=== PATIENT | female | born 2000 | race Caucasian/White ===

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

== ENCOUNTER 2023-09-29 00:31 | Inpatient (IN) ==
[2023-09-29] MEDS ORDERED: PENICILLIN GK 6 MU in DEXTROSE 5% 250 ML IV STA (01:14)
[2023-09-29] MEDS ORDERED: OXYTOCIN 30 UNITS/NSS 30 UNITS/500 ML BAG IV PRN ×3 (01:14→14:14)
[2023-09-29] MEDS ORDERED: LIDOCAINE 1% LOCAL 20 ML VIAL INFIL PRN (01:14)
[2023-09-29] MEDS: LACTATED RINGER'S 1,000 ML IV PRN ×2 (01:24→04:44)
[2023-09-29 02:01] LABS: Hematocrit (blood only) 32.7 % (37.0-47.0); Hemoglobin 10.9 g/dl (12.0-16.0); Mean Corpuscular Hemoglobin 28.2 pg (25.0-34.0); Mean Corpuscular Hgb Conc 33.3 g/dL (32.0-36.0); Mean Corpuscular Volume 84.5 fL (80.0-100.0); Mean Platelet Volume 10.4 fL (9.4-12.4); Platelet Count 227 K/uL (130-400); RDW Coefficient of Variation 12.9 % (11.5-14.5); RDW Standard Deviation 38.7 fL (36.4-46.3); Red Blood Count 3.87 M/uL (4.20-5.40); White Blood Count 10.37 K/ul (4.8-10.8)
[2023-09-29] MEDS ORDERED: fentaNYL citrate PF 100 MCG/2 ML VIAL ONE (03:52)
[2023-09-29] MEDS ORDERED: LIDOCAINE 2%/EPINEPHRINE 1:200,000 20 ML PF ONE (03:53)
[2023-09-29] MEDS ORDERED: BUPIVACAINE 0.25% PF 30 ML VIAL ONE (03:53)
[2023-09-29] MEDS ORDERED: fentANYL 2 MCG/ML BUPIVacaine 0.125%-NSS 100ML BAG ONE (03:53)
[2023-09-29] MEDS ORDERED: SODIUM CHLORIDE 0.9% PF INJ 10 ML VIAL ONE (03:53)
[2023-09-29] MEDS ORDERED: ePHEDrine sulfate 50 MG/ML AMP ONE (03:53)
[2023-09-29] MEDS ORDERED: NALOXONE HCL 1 MG in SODIUM CHLORIDE 0.9% 1,000 ML IV PRN (04:19)
[2023-09-29] MEDS ORDERED: BUPIVACAINE 0.25% PF 30 ML VIAL EPI PRN (04:19)
[2023-09-29] MEDS ORDERED: fentaNYL citrate PF 100 MCG/2 ML VIAL EPI STA (04:19)
[2023-09-29] MEDS ORDERED: LIDOCAINE 2%/EPINEPHRINE 1:200,000 20 ML PF EPI STA (04:19)
[2023-09-29] MEDS ORDERED: fentANYL 2 MCG/ML BUPIVacaine 0.125%-NSS 100ML BAG EPI PRN (04:19)
[2023-09-29] MEDS ORDERED: SODIUM CHLORIDE 0.9% PF INJ 10 ML VIAL EPI PRN (04:19)
[2023-09-29] MEDS ORDERED: SODIUM CHLORIDE 0.9% PF INJ 10 ML VIAL EPI STA (04:19)
[2023-09-29] MEDS ORDERED: ePHEDrine sulfate 50 MG/ML AMP IV PRN (04:19)
[2023-09-29] MEDS ORDERED: LIDOCAINE 2% MPF LOCAL 5 ML VIAL EPI PRN (04:19)
[2023-09-29] MEDS ORDERED: diphenhydrAMINE 50 MG/ML VIAL IV PRN (04:19)
[2023-09-29] MEDS ORDERED: NALBUPHINE HCL 5 MG in SYRINGE 0 ML IV PRN (04:19)
[2023-09-29] MEDS ORDERED: NALOXONE HCL 0.4 MG/1 ML VIAL/CARP IV PRN (04:19)
[2023-09-29] MEDS ORDERED: BUPIVACAINE 0.25% PF 30 ML VIAL EPI STA (04:19)
[2023-09-29] MEDS ORDERED: ROPIVACAINE 0.5% PF 5 MG/ML 20 ML VIAL EPI PRN (04:19)
[2023-09-29] MEDS ORDERED: fentaNYL citrate PF 100 MCG/2 ML VIAL EPI PRN (04:19)
--- NOTE | 2023-09-29 04:19 | Anesthesiology Consultation ---
Date of Service September 29, 2023 Assessment & Plan (1) Encounter for pre-operative examination: Chart Review Chart Review: Patient NOT seen in Pre Admission Testing and Acceptable Risk for Labor Epidural Consults Requested none History Height/Weight Height: 5 ft 9 in Weight: 87.997 kg Allergies Allergy/AdvReac Type Severity Reaction Status Date / Time No Known Allergies Allergy Verified 09/22/23 09:43 Medications Home Medications Medication Instructions Recorded Confirmed Last Taken prenat.vits,gerard,[id number] 1 tab PO DAILY 02/25/23 09/29/23 09/29/23 breast pump #1 ea 08/06/23 09/22/23 Unknown Active Medications Generic Name Dose Route Start Last Admin Trade Name Freq PRN Reason Stop Dose Admin Lactated Ringer's 1,000 mls @ 125 mls/hr 09/29/23 01:14 09/29/23 03:59 Lr IV 10/01/23 01:13 999 mls/hr .Q8H PRN Infusion L&D Protocol Protocol Past Family History Family History Grandfather (Maternal) Myocardial infarction Family/Other Breast cancer cousin Mother Depression Sister Depression Asthma Grandfather Colorectal cancer Denies family history of Ovarian cancer Prostate cancer Past Surgical History Surgical History H/O eye surgery S/P hernia repair inguinal H/O wrist surgery Social History Smoking Status: Current every day smoker Do You Dip or Chew Tobacco: No Hx Alcohol Use: No Hx Substance Use: No substance use type: does not use Physical Exam Vital Signs Last Vital Signs Temp 98.2 F 09/29/23 03:25 Pulse 78 09/29/23 04:16 Resp 18 09/29/23 03:25 BP 130/65 09/29/23 03:26 Pulse Ox 98 09/29/23 04:16 Testing Laboratory Results 09/29/23 01:47
[2023-09-29] MEDS: PENICILLIN GK 3 MU in DEXTROSE 5% 100 ML IV PRN ×2 (05:27→11:05)
--- NOTE | 2023-09-29 07:42 | History & Physical Report ---
Date of Service September 29, 2023 Assessment & Plan (1) GBS carrier: (2) Encounter for supervision of normal , antepartum: Plan Will admit patient to labor and delivery for management of labor VSS FHT category 1 rh positive GBS positive - treat with intrapartum penicillin Pit as needed Epidural prn All questions answered Admission and Anticipated Discharge Date Admission Date: September 29, 2023 History of Present Illness Chief Complaint: ROM Primary Care Provider: Raman GuyDO Eloise meek is a 23 y/o female currently at IUP 38 3/7 WGA with an ALEKS 10/10/23 as determined by certain LMP who is here for management of labor after she notic ed a gush of fluid earlier this morning. (+) contractions (+) movement (+) fluid loss (-) bloody show External FHT and external uterine monitors used * Category 1 tracing * Moderate FHT variability. Had regular appointments since 1st trimester. OB Labs: Blood Type AB Positive 03/04/23 Antibody Screen NEGATIVE 03/04/23 Hemoglobin 11.0 g/dl (12.0-16.0) L 08/04/23 Hematocrit 32.3 % (37.0-47.0) L 08/04/23 Mean Corpuscular Volume 86.1 fL (80.0-100.0) 08/04/23 Platelet Count 236 K/uL (130-400) 08/04/23 Rubella IgG Antibody Immune (Immune) 03/04/23 Rapid Plasma Reagin Nonreactive (Nonreactive) 03/04/23 Hepatitis B Surface Antigen. NON-REACTIVE (NON-REACTIVE) 03/04/23 Hepatitis C Antibody (EIA) NON-REACTIVE (NON-REACTIVE) 03/04/23 HIV (1&2) Ag and Ab Confirmation NON-REACTIVE (NON-REACTIVE) 03/04/23 Glucose 1 Hour 50 gm Load 129 mg/dl (70-130) 07/22/23 Maternal Serum Alpha Fetoprotein 39.6 ng/mL 05/01/23 OB Optional Labs: Chlamydia trachomatis RNA Not Detected (NotDetected) 05/01/23 Neisseria gonorrhoeae RNA Not Detected (NotDetected) 05/01/23 Thyroid Stimulating Hormone (TSH) 1.810 uIu/ml (0.300-4.500) 08/25/20 Alpha Fetoprotein Triple Screen SEE NOTE 05/01/23 Allergies Allergy/AdvReac Type Severity Reaction Status Date / Time No Known Allergies Allergy Verified 09/22/23 09:43 Home Medications Medication Instructions Recorded Confirmed Type prenat.vits,gerard,spv-wybt-ejadq 1 tab PO DAILY 02/25/23 09/29/23 History breast pump #1 ea 08/06/23 09/22/23 Rx Patient History Surgical History H/O eye surgery S/P hernia repair inguinal H/O wrist surgery Family History Grandfather (Maternal) Myocardial infarction Family/Other Breast cancer cousin Mother Depression Sister Depression Asthma Grandfather Colorectal cancer Denies family history of Ovarian cancer Prostate cancer Social History (Updated 09/29/23 @ 00:50 by Senia Ardon RN) Smoking Status: Current every day smoker Tobacco Type: E-cigarettes / Vaping Second Hand Exposure: Yes (smoke and vape exposure); Do You Dip or Chew Tobacco: No; Hx Alcohol Use: No Hx Substance Use: No Preferred Language: Latvian Records Associate Required: No Beliefs That Will Affect Care: None marital status: Single marital status details: Brando (23) [phone] Current Living Situation: Significant Other current occupational status: employed 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 Details: Last pap 04/30/22 with [facility] Ac Review of Systems no fever, no chills and no sweats Denies changes in vision. Denies shortness of breath or respiratory difficulty. no chest pain and no palpitations no dysuria no headache(s) Physical Exam Physical Exam: General: Alert, oriented x3. Afebrile. No acute distress. Eyes: Pupils equal and reactive to light bilaterally. Extraocular movement intac t bilaterally. Cardiac: Regular rate and rhythm, no murmurs/rubs/gallops. Respiratory: Clear to auscultation bilaterally a/p, no wheezes/rales/rhonchi. No increased work of breathing. Symmetrical chest rise. No respiratory distress. Abdomen: Gravid; FHR baseline 125-130 bpm, Position: Vertex Pelvic: 3 / 50 / -[address] Guillory Lower Extremities: No lower extremity edema or swelling. No deep calf pain. Renetta's negative bilaterally Results & Data Vital Signs (Past 12 Hours) Vital Signs Temp Pulse Resp BP Pulse Ox 09/29/23 07:27 75 107/55 L 09/29/23 07:26 70 93 09/29/23 07:22 68 94 09/29/23 07:21 71 95 09/29/23 07:16 76 96 09/29/23 07:15 70 94 09/29/23 07:12 70 106/60 09/29/23 07:11 71 91 09/29/23 07:06 73 94 09/29/23 07:01 96 09/29/23 07:01 72 09/29/23 07:01 73 94 09/29/23 06:59 36.4 C L 84 16 101/57 L 97 09/29/23 06:56 97 09/29/23 06:56 84 09/29/23 06:56 36.4 C L 83 16 101/57 L 97 09/29/23 06:51 77 97 09/29/23 06:46 70 95 09/29/23 06:41 97 09/29/23 06:41 76 09/29/23 06:41 63 101/58 L 09/29/23 06:36 77 96 09/29/23 06:31 70 96 09/29/23 06:26 96 09/29/23 06:26 78 09/29/23 06:26 67 104/55 L 09/29/23 06:23 73 93 09/29/23 06:21 81 98 09/29/23 06:16 85 97 09/29/23 06:13 74 107/58 L 09/29/23 06:11 74 97 09/29/23 06:06 87 97 09/29/23 06:01 69 98 09/29/23 05:56 97 09/29/23 05:56 74 09/29/23 05:56 74 99/54 L 09/29/23 05:51 69 97 09/29/23 05:46 73 96 09/29/23 05:41 77 108/58 L 96 09/29/23 05:36 74 96 09/29/23 05:31 69 96 09/29/23 05:30 16 09/29/23 05:30 36.5 C 16 09/29/23 05:27 73 106/57 L 09/29/23 05:26 70 96 09/29/23 05:21 72 96 09/29/23 05:16 70 96 09/29/23 05:11 96 09/29/23 05:11 70 09/29/23 05:11 73 101/55 L 09/29/23 05:06 73 97 09/29/23 05:01 76 97 09/29/23 04:56 76 96 09/29/23 04:55 74 16 106/52 L 09/29/23 04:51 73 96 09/29/23 04:50 16 09/29/23 04:50 16 09/29/23 04:49 75 105/55 L 09/29/23 04:47 79 105/55 L 09/29/23 04:46 77 97 09/29/23 04:45 71 18 108/53 L 09/29/23 04:42 80 117/59 L 09/29/23 04:41 88 98 09/29/23 04:40 80 118/73 09/29/23 04:39 76 16 119/72 09/29/23 04:36 83 100 09/29/23 04:31 85 100 09/29/23 04:26 82 98 09/29/23 04:21 84 98 09/29/23 04:16 78 98 09/29/23 04:11 81 98 09/29/23 04:06 78 99 09/29/23 03:26 76 130/65 09/29/23 03:25 18 09/29/23 03:25 36.8 C 18 09/29/23 02:17 18 09/29/23 02:17 36.7 C 18 09/29/23 00:51 36.7 C 18 09/29/23 00:45 88 131/85 Supervising Physician Co-Signing Physician Notes Resident Physician Supervision Note: I was present with Dr. Centeno during the history and exam. I discussed the case with the resident and agree with the findings and plan as documented in the note. Any exceptions or clarifications are listed here: [None] Documented By: Shaniqua Guillory MD, FACOG
[2023-09-29 09:52] LABS: Alanine Aminotransferase 9 U/L (7-52); Albumin Globulin Ratio 1.1 (0.9-2); Alkaline Phosphatase 125 U/L (34-104); Anion Gap 6 (3-11); Aspartate Aminotransferase 13 U/L (13-39); BUN Creatinine Ratio 11.5 (10-20); Bilirubin,Total 0.3 mg/dl (0.2-1.0); Blood Urea Nitrogen 6 mg/dl (6-23); Calcium 8.3 mg/dl (8.6-10.3); Carbon Dioxide 24 mmol/L (21-32); Chloride 108 mmol/L (98-107); Creatinine Clr Calc Pharmacy 200.7 ml/min; Est GFR (African American) > 150.0 ml/min; Est GFR (Non-African American) 135.6 ml/min; Globulin 2.7 gm/dl (2.5-4.0); Glucose 84 mg/dl (70-99(Fasting)); Potassium 3.6 mmol/L (3.5-5.1); Sodium 138 mmol/L (136-145); Total Protein 5.7 gm/dl (6.0-8.3)
--- NOTE | 2023-09-29 11:00 | Labor Progress Brief Note ---
Date of Service September 29, 2023 Subjective comfortable with epidural. Assessment & Plan (1) PROM (premature rupture of membranes): (2) GBS carrier: Plan good cx change. c/w pitocin to keep labor pattern regular. fhts categ 1. Admission and Anticipated Discharge Date Admission Date: September 29, 2023 Physical Exam Constitutional: WD/WN, vitals as above Genitourinary: Manual OB Exam: + cervical dilation 7 cm, + cervical effacement 80%, + station -1 and + amniotic fluid (forebag arom) clear OB Exam Monitor Tracing: + external FHT monitor used, + external uterine monitor used (q2-3), + category I and + normal FHT variability Results & Data Vital Signs (Past 12 Hours) Vital Signs Temp Pulse Resp BP Pulse Ox 09/29/23 10:57 79 91 09/29/23 10:56 80 97 09/29/23 10:51 81 96 09/29/23 10:46 74 96 09/29/23 10:41 96 09/29/23 10:41 79 09/29/23 10:41 82 105/57 L 91 09/29/23 10:36 76 95 09/29/23 10:31 78 97 09/29/23 10:26 80 111/58 L 96 09/29/23 10:21 84 97 09/29/23 10:16 84 97 09/29/23 10:11 59 L 135/71 96 09/29/23 10:06 61 96 09/29/23 10:01 61 97 09/29/23 09:57 57 L 131/71 09/29/23 09:56 61 97 09/29/23 09:51 63 97 09/29/23 09:46 63 97 09/29/23 09:41 98 09/29/23 09:41 64 09/29/23 09:41 61 136/72 09/29/23 09:36 64 97 09/29/23 09:31 66 98 09/29/23 09:27 63 131/76 09/29/23 09:26 66 98 09/29/23 09:21 68 98 09/29/23 09:16 67 98 09/29/23 09:11 98 09/29/23 09:11 74 09/29/23 09:11 67 144/63 H 09/29/23 09:06 73 97 09/29/23 09:01 70 97 09/29/23 08:56 98 09/29/23 08:56 64 09/29/23 08:56 68 147/64 H 09/29/23 08:51 72 98 09/29/23 08:46 68 96 09/29/23 08:41 97 09/29/23 08:41 74 09/29/23 08:41 75 138/57 L 09/29/23 08:36 77 97 09/29/23 08:31 69 97 09/29/23 08:26 97 09/29/23 08:26 87 09/29/23 08:26 67 144/81 H 09/29/23 08:21 79 98 09/29/23 08:16 73 97 09/29/23 08:11 96 09/29/23 08:11 76 09/29/23 08:11 85 148/96 H 09/29/23 08:06 75 95 09/29/23 08:01 76 96 09/29/23 07:56 77 141/89 H 92 09/29/23 07:51 79 96 09/29/23 07:46 78 96 09/29/23 07:42 70 138/75 94 09/29/23 07:41 74 96 09/29/23 07:36 69 97 09/29/23 07:31 79 98 09/29/23 07:27 75 107/55 L 09/29/23 07:26 70 93 09/29/23 07:22 68 94 09/29/23 07:21 71 95 09/29/23 07:16 76 96 09/29/23 07:15 70 94 09/29/23 07:12 70 106/60 09/29/23 07:11 71 91 09/29/23 07:06 73 94 09/29/23 07:01 96 09/29/23 07:01 72 09/29/23 07:01 73 94 09/29/23 06:59 97.5 F L 84 16 101/57 L 97 09/29/23 06:56 97 09/29/23 06:56 84 09/29/23 06:56 97.5 F L 83 16 101/57 L 97 09/29/23 06:51 77 97 09/29/23 06:46 70 95 09/29/23 06:41 97 09/29/23 06:41 76 09/29/23 06:41 63 101/58 L 09/29/23 06:36 77 96 09/29/23 06:31 70 96 09/29/23 06:26 96 09/29/23 06:26 78 09/29/23 06:26 67 104/55 L 09/29/23 06:23 73 93 09/29/23 06:21 81 98 09/29/23 06:16 85 97 09/29/23 06:13 74 107/58 L 09/29/23 06:11 74 97 09/29/23 06:06 87 97 09/29/23 06:01 69 98 09/29/23 05:56 97 09/29/23 05:56 74 09/29/23 05:56 74 99/54 L 09/29/23 05:51 69 97 09/29/23 05:46 73 96 09/29/23 05:41 77 108/58 L 96 09/29/23 05:36 74 96 09/29/23 05:31 69 96 09/29/23 05:30 16 09/29/23 05:30 97.7 F 16 09/29/23 05:27 73 106/57 L 09/29/23 05:26 70 96 09/29/23 05:21 72 96 09/29/23 05:16 70 96 09/29/23 05:11 96 09/29/23 05:11 70 09/29/23 05:11 73 101/55 L 09/29/23 05:06 73 97 09/29/23 05:01 76 97 09/29/23 04:56 76 96 09/29/23 04:55 74 16 106/52 L 09/29/23 04:51 73 96 09/29/23 04:50 16 09/29/23 04:50 16 09/29/23 04:49 75 105/55 L 09/29/23 04:47 79 105/55 L 09/29/23 04:46 77 97 09/29/23 04:45 71 18 108/53 L 09/29/23 04:42 80 117/59 L 09/29/23 04:41 88 98 09/29/23 04:40 80 118/73 09/29/23 04:39 76 16 119/72 09/29/23 04:36 83 100 09/29/23 04:31 85 100 09/29/23 04:26 82 98 09/29/23 04:21 84 98 09/29/23 04:16 78 98 09/29/23 04:11 81 98 09/29/23 04:06 78 99 09/29/23 03:26 76 130/65 09/29/23 03:25 18 09/29/23 03:25 98.2 F 18 09/29/23 02:17 18 09/29/23 02:17 98.1 F 18 09/29/23 00:51 98.1 F 18 09/29/23 00:45 88 131/85 Coding Level of Care Code None Diagnoses PROM (premature rupture of membranes) O42.90 GBS carrier Z22.330
--- NOTE | 2023-09-29 12:53 | Delivery Summary ---
Vaginal Delivery Summary Date of Service September 29, 2023 Vaginal Delivery Summary and 1st Degree LAC Patient progressed to 10 cm dilated 100% effaced +2-3 station and pushed over intact perineum with epidural anesthesia and delivered a viable male with weight and Apgars pending. Head of the delivered in SUNDAY position and transition to left transverse. Body and shoulders quickly followed. Patient pushed for approximately 6 to 8 minutes to achieve delivery. was noted to be vigorous soon after delivery and a 1 minute delayed cord clamping was initiated. Cord was then double clamped and cut and cord blood obtained. Attention was turned to delivery of the placenta was delivered intact with three-vessel cord gentle cord traction. On inspection of perineum, vagina and cervix there is noted to be a first-degree perineal laceration which was repaired with 3-0 Vicryl continuous running stitch. All sponge and instrument counts are correct at the completion of the case. Both mother and stable in the immediate postdelivery period. Estimated blood loss of 200 mL and no complications noted [facility] Vaginal Delivery Charge Delivery Type Details: and 1st Degree LAC
--- NOTE | 2023-09-29 13:56 | Anesthesia Procedure Note ---
Date of Service September 29, 2023 Anesthesia Post Epidural Note Vital Signs Vital Signs: Temp Pulse Resp BP Pulse Ox 36.6 C 71 18 122/80 97 09/29/23 10:56 09/29/23 13:40 09/29/23 12:00 09/29/23 13:40 09/29/23 12:46 Pain Intensity Lower Abdomen: Pain Intensity: 0 Notes Mental Status: alert / awake / arousable and participated in evaluation Nausea / Vomiting: adequately controlled Pain: adequately controlled Airway Patency, RR, SpO2: stable & adequate BP & HR: stable & adequate Hydration State: stable & adequate Neuraxial Anesthesia: was administered and sensory block resolved Anesthetic Complications: no major complications apparent and Pt Satisfied with anesthetic care Epidural: Removed without complications and With tip intact
[2023-09-29] MEDS ORDERED: BENZOCAINE 20% SPRY 85 APPLN/85 GM CAN EXT PRN (14:14)
[2023-09-29] MEDS ORDERED: HYDROCORTISONE ACETATE 25 MG SUPP PR PRN (14:14)
[2023-09-29] MEDS ORDERED: ACETAMINOPHEN 325 MG TAB PO PRN (14:14)
[2023-09-29] MEDS ORDERED: bisacodyL 10 MG SUPP PR PRN (14:14)
[2023-09-29] MEDS ORDERED: DIPHTHER/TETAN/PERTUS Vaccine (Tdap, Adol/Adult) 0.5mL IM ONE (14:14)
[2023-09-29] MEDS: IBUPROFEN 600 MG TAB PO PRN (19:56)
[2023-09-29] MEDS: DOCUSATE SODIUM 100 MG CAP PO SCH (21:53)
[2023-09-30] MEDS: IBUPROFEN 600 MG TAB PO PRN ×3 (03:02→19:26)
--- NOTE | 2023-09-30 07:23 | Obstetrical Progress Note ---
Date of Service <Bonny Centeno MD - Last Filed: 09/30/23 07:43> September 30, 2023 Assessment & Plan <Bonny Centeno MD - Last Filed: 09/30/23 07:43> (1) Encounter for care after hospital delivery: Patient with the above mentioned history and findings was evaluated at bedside and found awake, alert, oriented in all spheres, afebrile, and in no acute distress. Vital signs showed no fever and blood pressures remained stable. Her blood type is AB positive and most recent hemoglobin is adequate at 10.9 g/dL. She is GBS positive treated intrapartum and rubella immune. Overall, patient is doing well clinically and meeting the desired milestones. Will continue routine pp care. All questions answered. <Guillermina Jo MD, FACOG - Last Filed: 09/30/23 07:47> (1) Encounter for care after hospital delivery: Subjective <Bonny Centeno MD - Last Filed: 09/30/23 07:43> Eloise is a 23y/o female who is now PPD # 1 following at 38 3/7 weeks. Reports feeling well overall this morning. Refers mild abdominal cramping & 3/10 pain well managed on analgesics. Voiding spontaneously. Has passed flatus but no bowel movements yet. Tolerating meals overnight and able to ambulate some. Some persistent lochia with some improvement this morning. Tried but did not like it. Will change to bottle feeding. Constitutional: no fever, no chills or no sweats Denies shortness of breath or difficulty breathing Cardiovascular: no chest pain or no palpitations Breast: no breast pain Genitourinary (female): no dysuria Neurologic: no headache(s) Denies changes in vision Physical Exam <Bonny Centeno MD - Last Filed: 09/30/23 07:43> General: Alert. Oriented to person, time, and place. Afebrile. No acute distress. Eyes: pupils equal and reactive to light bilaterally, extraocular movements intact. Cardiac: Regular rate and rhythm, no murmurs/rubs/gallops. Respiratory: Clear to auscultation bilaterally a/p, no wheezes/rales/rhonchi. No increased work of breathing. Symmetrical chest rise. No respiratory distress. Abdomen: Soft, nontender, nondistended. Bowel sounds present. Uterus: Uterine fundus firm, nontender, and palpable below umbilicus. Lower Extremities: No lower extremity edema or swelling. No deep calf pain. Renetta's negative bilaterally. Psych: Euthymic affect. Mood and affect congruence. Regular speech rate and content. Results & Data <Bonny Centeno MD - Last Filed: 09/30/23 07:43> Vital Signs (Past 12 Hours) Vital Signs Temp Pulse Resp BP Pulse Ox O2 Del Method 09/30/23 03:06 36.7 C 86 18 109/67 97 Room Air 09/30/23 00:45 36.6 C 83 18 114/72 98 Room Air 09/29/23 20:00 36.4 C L 80 18 112/72 98 Room Air Supervising Physician <Guillermina Jo MD, FACOG - Last Filed: 09/30/23 07:47> Co-Signing Physician Notes Resident Physician Supervision Note: I was present with Dr. Centeno during the history and exam. I discussed the case with the resident and agree with the findings and plan as documented in the note. Any exceptions or clarifications are listed here: doing well, eating, voiding ambulating, now bottle feeding. abd soft ff 2 down nt, nt calves. ppd#1 s/p , doing well. routine care. bottle, rhpos. Documented By: Guillermina Jo MD, FACOG
[2023-09-30] MEDS: DOCUSATE SODIUM 100 MG CAP PO SCH ×2 (07:56→21:07)
[2023-09-30] MEDS: PRENATAL VITAMIN 1 TAB PO SCH (07:56)
[2023-09-30] MEDS ORDERED: NON-FORMULARY MEDICATION (Prenat.Vits,Cal,Min-Iron-Folic tablet) PO SCH (09:00)
[2023-09-30] MEDS ORDERED: bisacodyL 5 MG TABEC PO SCH (20:00)
[2023-10-01] MEDS: IBUPROFEN 600 MG TAB PO PRN ×2 (02:12→09:30)
[2023-10-01 06:16] LABS: Hematocrit (blood only) 31.2 % (37.0-47.0); Hemoglobin 10.6 g/dl (12.0-16.0)
--- NOTE | 2023-10-01 06:54 | Obstetrical Progress Note ---
Date of Service <Bonny Centeno MD - Last Filed: 10/01/23 07:40> October 01, 2023 Assessment & Plan <Bonny Centeno MD - Last Filed: 10/01/23 07:40> (1) Encounter for care after hospital delivery: Patient with the above mentioned history and findings was evaluated at bedside and found awake, alert, oriented in all spheres, afebrile, and in no acute distress. Vital signs showed no fever and blood pressures remained stable. Her blood type is AB positive and most recent hemoglobin is adequate at 10.6 g/dL. She is GBS positive treated intrapartum and rubella immune. Overall, patient is doing well clinically and meeting the desired milestones. Therefore, will discharge today. She was advised to call to make an appointment with her OB in 6 weeks for her routine pp evaluation. Discharge instructions discussed. All questions answered. <Yvrose Knight MD, FACOG - Last Filed: 10/01/23 08:03> (1) Encounter for care after hospital delivery: Subjective <Bonny Centeno MD - Last Filed: 10/01/23 07:40> Eloise is a 23y/o female who is now PPD # 2 following at 38 3/7 weeks. Reports feeling well overall this morning. Refers mild abdominal cramping & 3/10 pain well managed on analgesics. Voiding spontaneously. Has passed flatus but no bowel movements yet. Tolerating meals overnight and able to ambulate without resulting lightheadedness or dizziness. Some persistent lochia with some improvement this morning. Currently bottle feeding. Constitutional: no fever, no chills or no sweats Denies shortness of breath or difficulty breathing Cardiovascular: no chest pain or no palpitations Breast: no breast pain Genitourinary (female): no dysuria Neurologic: no headache(s) Denies changes in vision Physical Exam <Bonny Centeno MD - Last Filed: 10/01/23 07:40> General: Alert. Oriented to person, time, and place. Afebrile. No acute distress. Eyes: pupils equal and reactive to light bilaterally, extraocular movements intact. Cardiac: Regular rate and rhythm, no murmurs/rubs/gallops. Respiratory: Clear to auscultation bilaterally a/p, no wheezes/rales/rhonchi. No increased work of breathing. Symmetrical chest rise. No respiratory distress. Abdomen: Soft, nontender, nondistended. Bowel sounds present. Uterus: Uterine fundus firm, nontender, and palpable below umbilicus. Lower Extremities: No lower extremity edema or swelling. No deep calf pain. Renetta's negative bilaterally. Psych: Euthymic affect. Mood and affect congruence. Regular speech rate and content. Results & Data <Bonny Centeno MD - Last Filed: 10/01/23 07:40> Vital Signs (Past 12 Hours) Vital Signs Temp Pulse Resp BP Pulse Ox O2 Del Method 09/30/23 23:36 36.5 C 76 18 115/73 09/30/23 19:25 36.8 C 75 18 119/77 98 Room Air Supervising Physician <Yvrose Knight MD, FACOG - Last Filed: 10/01/23 08:03> Co-Signing Physician Notes Resident Physician Supervision Note: I interviewed and examined the patient. Discussed with Dr. Centeno and agree with findings and plan as documented in the note. Any exceptions or clarifications are listed here: [None] Documented By: Yvrose Knight MD, FACOG
[2023-10-01] MEDS: PRENATAL VITAMIN 1 TAB PO SCH (09:30)
[2023-10-01] MEDS: DOCUSATE SODIUM 100 MG CAP PO SCH (09:30)
== END 2023-10-01 11:00 | disposition home or self-care (01) | DRG 807 ==
LOC: OPB 00:31 → 4S1 00:34 → 4E2 15:15

== ENCOUNTER 2024-11-01 20:20 | Inpatient (IN) ==
[2024-11-02] MEDS: LACTATED RINGER'S 1,000 ML IV PRN
[2024-11-02] MEDS ORDERED: OXYTOCIN 30 UNITS/NSS 30 UNITS/500 ML BAG IV PRN (00:15)
[2024-11-02] MEDS ORDERED: LIDOCAINE 1% LOCAL 20 ML VIAL INFIL PRN (00:15)
[2024-11-02] MEDS ORDERED: fentANYL 2 MCG/ML BUPIVacaine 0.125%-NSS 100ML BAG EPI PRN (01:13)
[2024-11-02] MEDS ORDERED: diphenhydrAMINE 50 MG/ML VIAL IV PRN ×3 (01:13→20:25)
[2024-11-02] MEDS ORDERED: SODIUM CHLORIDE 0.9% PF INJ 10 ML VIAL EPI PRN (01:13)
[2024-11-02] MEDS ORDERED: LIDOCAINE 2% MPF LOCAL 5 ML VIAL EPI PRN (01:13)
[2024-11-02] MEDS ORDERED: ONDANSETRON INJ 2 MG/ML 2 ML VIAL IV PRN ×2 (01:13→20:25)
[2024-11-02] MEDS ORDERED: ROPIVACAINE 0.5% PF 5 MG/ML 20 ML VIAL EPI PRN (01:13)
[2024-11-02] MEDS ORDERED: ePHEDrine sulfate 50 MG/ML AMP IV PRN ×2 (01:13→02:25)
[2024-11-02] MEDS ORDERED: NALBUPHINE HCL INJ 10 MG/ML AMP IV PRN ×2 (01:13→02:25)
[2024-11-02] MEDS ORDERED: NALOXONE HCL 0.4 MG/1 ML VIAL/CARP IV PRN ×2 (01:13→02:25)
[2024-11-02] MEDS ORDERED: NALOXONE HCL 1 MG in SODIUM CHLORIDE 0.9% 1,000 ML IV PRN ×2 (01:13→02:25)
[2024-11-02] MEDS ORDERED: BUPIVACAINE 0.25% PF 30 ML VIAL EPI PRN (01:13)
[2024-11-02] MEDS ORDERED: fentaNYL citrate PF 100 MCG/2 ML VIAL EPI PRN (01:13)
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
[2024-11-02 01:20] LABS: Hematocrit (blood only) 34.9 % (37.0-47.0); Mean Corpuscular Hemoglobin 29.1 pg (25.0-34.0); Mean Corpuscular Hgb Conc 34.4 g/dL (32.0-36.0); Mean Corpuscular Volume 84.7 fL (80.0-100.0); Mean Platelet Volume 11.5 fL (9.4-12.4); Platelet Count 204 K/uL (130-400); RDW Coefficient of Variation 14.5 % (11.5-14.5); RDW Standard Deviation 43.8 fL (36.4-46.3); Red Blood Count 4.12 M/uL (4.20-5.40); White Blood Count 12.68 K/ul (4.8-10.8)
[2024-11-02] MEDS: LIDOCAINE 2%/EPINEPHRINE 1:200,000 20 ML PF ONE (01:34)
[2024-11-02] MEDS: BUPIVACAINE 0.25% PF 30 ML VIAL ONE (01:34)
[2024-11-02] MEDS: fentANYL 2 MCG/ML BUPIVacaine 0.125%-NSS 100ML BAG ONE (01:37)
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
[2024-11-02] MEDS: LIDOCAINE 2%/EPINEPHRINE 1:200,000 20 ML PF EPI STA (01:41)
[2024-11-02] MEDS: fentaNYL citrate PF 100 MCG/2 ML VIAL ONE (01:41)
[2024-11-02] MEDS: fentaNYL citrate PF 100 MCG/2 ML VIAL EPI STA (01:41)
[2024-11-02] MEDS: BUPIVACAINE 0.25% PF 30 ML VIAL EPI STA (01:41)
[2024-11-02] MEDS: SODIUM CHLORIDE 0.9% PF INJ 10 ML VIAL ONE (01:41)
[2024-11-02] MEDS: ePHEDrine sulfate 50 MG/ML AMP ONE (01:41)
[2024-11-02] MEDS: SODIUM CHLORIDE 0.9% PF INJ 10 ML VIAL EPI STA (01:42)
[2024-11-02] MEDS ORDERED: PHENYLEPHRINE HCL 25 MG/250 ML NSS IV ONE (01:52)
[2024-11-02] MEDS ORDERED: MoRPHine SULFATE PF 1 MG/ML 10 ML AMP/VIAL ONE (01:52)
[2024-11-02] MEDS ORDERED: DEXAMETHASONE SOD INJ 4 MG/ML VIAL ONE (01:52)
[2024-11-02] MEDS ORDERED: ONDANSETRON INJ 2 MG/ML 2 ML VIAL ONE (01:52)
[2024-11-02] MEDS ORDERED: ePHEDrine sulfate 50 MG/5 ML SYR ONE (01:52)
[2024-11-02] MEDS ORDERED: AZITHROMYCIN 500 MG VIAL IV ONE (01:53)
[2024-11-02] MEDS ORDERED: LIDOCAINE 2%/EPINEPHRINE 1:200,000 20 ML PF ONE (01:56)
[2024-11-02] MEDS ORDERED: LACTATED RINGER'S 1,000 ML IV SCH ×3 (02:00→03:20)
[2024-11-02] MEDS: CITRIC ACID/SODIUM CITRATE 15 ML UDC PO SCH (02:00)
[2024-11-02] MEDS: AZITHROMYCIN 500 MG in SODIUM CHLORIDE 0.9% 250 ML IV STA (02:01)
[2024-11-02] MEDS: ceFAZolin 2000MG 2,000 MG/15 ML SYR IV ONE (02:01)
--- NOTE | 2024-11-02 02:06 | Labor Progress Brief Note ---
Date of Service November 02, 2024 Subjective pt comfortable with epidural Assessment & Plan (1) Normal labor: (2) Breech presentation: Plan will need to proceed urgently to c/s. consent reviewed and signed. nursery and anesth aware. fhts categ 1. Admission and Anticipated Discharge Date Admission Date: November 02, 2024 Physical Exam Constitutional: WD/WN, vitals as above Genitourinary: Manual OB Exam: + cervical dilation (bulging memb, small parts palpated. ) 10 cm bedside us, footling breech Results & Data Vital Signs (Past 12 Hours) Vital Signs Temp Pulse Resp BP Pulse Ox 11/02/24 02:03 78 135/79 11/02/24 02:01 71 128/72 11/02/24 01:59 80 133/72 99 11/02/24 01:57 69 130/72 11/02/24 01:55 71 131/74 11/02/24 01:54 70 100 11/02/24 01:53 75 131/78 11/02/24 01:51 91 H 134/79 11/02/24 01:49 99 11/02/24 01:49 81 11/02/24 01:49 85 133/76 11/02/24 01:47 80 130/79 11/02/24 01:45 78 140/83 11/02/24 01:44 81 98 11/02/24 01:43 70 123/69 11/02/24 01:41 79 126/70 11/02/24 01:39 97 11/02/24 01:39 77 11/02/24 01:39 77 127/69 11/02/24 01:37 75 126/67 11/02/24 01:34 80 118/65 96 11/02/24 01:33 16 11/02/24 01:33 98.1 F 16 11/02/24 01:29 89 98 11/02/24 01:24 72 98 11/02/24 01:19 81 100 11/02/24 01:17 90 139/90 11/02/24 01:14 87 100 11/02/24 01:09 74 98 11/02/24 01:04 79 99 11/02/24 00:59 70 100 11/02/24 00:54 86 99 11/02/24 00:49 73 100 11/02/24 00:44 87 100 11/02/24 00:39 82 97 11/02/24 00:34 72 99 11/02/24 00:29 75 99 11/02/24 00:24 71 99 11/01/24 20:36 86 111/74 11/01/24 20:35 98.1 F 16 Coding Level of Care Code None Diagnoses Normal labor O80; Z37.9 Breech presentation O32.1XX0
[2024-11-02] MEDS ORDERED: OXYTOCIN 10 UNITS/ML VIAL ONE (02:22)
[2024-11-02] MEDS ORDERED: NALOXONE HCL 0.08 MG in SYRINGE 1.8 ML IV PRN (02:25)
[2024-11-02] MEDS ORDERED: oxyCODONE HCL IR 5 MG TAB (IMMEDIATE RELEASE) PO PRN ×2 (02:25→20:25)
[2024-11-02] MEDS ORDERED: MoRPHine SULFATE PF 1 MG/ML 10 ML AMP/VIAL EPI ONE (02:25)
[2024-11-02] MEDS ORDERED: PROMETHAZINE 6.25 MG/50.25 ML BAG IV PRN (02:25)
[2024-11-02] MEDS ORDERED: HYDROmorphone INJ 0.5 MG/0.5 ML SYR IV PRN ×2 (02:25→20:25)
[2024-11-02] MEDS ORDERED: METHYLERGONOVINE MALEATE 0.2 MG/ML AMP ONE (02:26)
[2024-11-02] MEDS: METHYLERGONOVINE MALEATE 0.2 MG/ML AMP IM STA (02:26)
[2024-11-02] MEDS ORDERED: DC INTRASPINAL MORPHINE SCH (02:30)
[2024-11-02] MEDS ORDERED: NO NARCOTICS OR SEDATIVES SCH (02:30)
[2024-11-02] MEDS ORDERED: MIDAZOLAM HCL 1 MG/ML 2ML VIAL ONE (02:34)
[2024-11-02] MEDS ORDERED: KETAMINE HCL 10MG/ML SYR ONE (02:34)
--- NOTE | 2024-11-02 02:56 | Operative Report ---
Post Operative Report Pre & Post Diagnosis Operation Date: 11/02/24 01:55 Pre-Op Diagnosis: 38+ weeks ega, spontaneous labor, breech presentation Post-Op Diagnosis: same as pre-op I identified the patient and participated in the time-out.: Yes Procedure Operation Date: 11/02/24 01:55 Actual Procedures p Primary Low Transverse Section in LD(Bilateral) - Guillermina Jo MD, FACOG Surgeon Guillermina Jo MD, FACOG Vehicle Return Associate RN Quantitative Blood Loss (QBL) 619 Findings Consistent with Post-Op Diagnosis (viable male, apgars 8,9. normal uterus tubes and ovaries bilaterally) Fluids 700 Specimens cord blood Drains rivas Anesthesia Type Labor Epidural Complications none Disposition Accompanied Patient To Recovery: No Disposition: L&D Indications 24yo at 38wks ega in labor, found to be breech and plan for urgent c/s. Description of Procedure The patient was taken to the operating room and identified. After adequate anesthesia was obtained, she was placed in the supine position with a leftward tilt on the operating table and prepped and draped in the usual sterile fashion. A rivas catheter had already been placed. The knife was used to create a Pfannensteil skin incision that was carried down to the underlying layer of fascia. The fascia was nicked in the midline and this opening was extended laterally using Gonzalez scissors. Escobar clamps were placed on the superior and inferior aspect of the fascial incision tenting it upward and the underlying rectus muscles were dissected off the overlying fascia both sharply and bluntly using Gonzalez scissors. The rectus muscles were bluntly in the midline. The peritoneal cavity was bluntly entered into. This opening was stretched. The bladder blade was placed. The vesicouterine peritoneum was elevated and opened up into and the bladder flap was created digitally and bladder blade was replaced. The knife was used to create a hysterotomy and this opening was stretched. The operators hand was placed through the hysterotomy and the bladder blade was removed. The buttocks was elevated and with fundal pressure delivered followed by feet. The fetus was delivered to level of scapulae and then arms were swept across anterior midline and the head was flexed and delivered. The cord was clamped and cut and the infant's mouth and nares were bulb suction. The was handed off to the awaiting pediatricians. Cord blood was obtained. The placenta was manually expressed. The uterus was exteriorized and cleared of all clots and debris. Dilute IV Pitocin was begun. The uterine tone was improving but lower uterus was boggy, bp checked and IM methergine injected in uterine muscle. The hysterotomy was closed in a running interlocking fashion using 0 Vicryl followed by a second imbricating layer of 0 Vicryl. The hysterotomy was hemostatic. The pelvis was irrigated. The uterus was returned to the abdomen. The gutters were cleared of all clots and debris. The hysterotomy was reinspected and small bleeding site at right hysterotomy stitched with single figure of eight of 0 vicryl for excellent hemostasis. The fascia was then closed in running fashion using 0 Vicryl. The subcutaneous fat was copiously irrigated and reapproximated using 2-0 chromic. The skin was closed in a subcuticular fashion using 4-0 monocryl. At this point the procedure was terminated. The patient was transferred to the recovery room in stable condition. All sponge, lap and needle counts are correct x2. I attest to the content of the Intraoperative Record and any orders documented therein. Any exceptions are noted below. OB Procedure Charges 31957
[2024-11-02] MEDS: OXYTOCIN 20 UNITS/LR 1,002 ML IV SCH (03:00)
[2024-11-02] MEDS: ACETAMINOPHEN 500 MG TAB PO ONE (03:01)
--- NOTE | 2024-11-02 03:08 | Anesthesiology Progress Note ---
Date of Service November 02, 2024 Anesthesia Post Procedure Vital Signs Vital Signs: Temp Pulse Resp BP Pulse Ox 11/02/24 03:03 70 129/76 11/02/24 03:02 71 96 11/02/24 02:03 78 135/79 11/02/24 02:01 71 128/72 11/02/24 01:59 80 133/72 99 11/02/24 01:57 69 130/72 11/02/24 01:55 71 131/74 11/02/24 01:54 70 100 11/02/24 01:53 75 131/78 11/02/24 01:51 91 H 134/79 11/02/24 01:49 99 11/02/24 01:49 81 11/02/24 01:49 85 133/76 11/02/24 01:47 80 130/79 11/02/24 01:45 78 140/83 11/02/24 01:44 81 98 11/02/24 01:43 70 123/69 11/02/24 01:41 79 126/70 11/02/24 01:39 97 11/02/24 01:39 77 11/02/24 01:39 77 127/69 11/02/24 01:37 75 126/67 11/02/24 01:34 80 118/65 96 11/02/24 01:33 16 11/02/24 01:33 36.7 C 16 11/02/24 01:29 89 98 11/02/24 01:24 72 98 11/02/24 01:19 81 100 11/02/24 01:17 90 139/90 11/02/24 01:14 87 100 11/02/24 01:09 74 98 11/02/24 01:04 79 99 11/02/24 00:59 70 100 11/02/24 00:54 86 99 11/02/24 00:49 73 100 11/02/24 00:44 87 100 11/02/24 00:39 82 97 11/02/24 00:34 72 99 11/02/24 00:29 75 99 11/02/24 00:24 71 99 11/01/24 20:36 86 111/74 11/01/24 20:35 36.7 C 16 Transfer of Care Handoff Completed per policy Notes Mental Status: alert / awake / arousable and participated in evaluation Patient Amnestic to Procedure: No Nausea / Vomiting: adequately controlled Pain: adequately controlled Airway Patency, RR, SpO2: stable & adequate BP & HR: stable & adequate Hydration State: stable & adequate Neuraxial Anesthesia: was administered and sensory block is resolving Anesthetic Complications: no major complications apparent and Pt Satisfied with anesthetic care
--- NOTE | 2024-11-02 03:08 | Anesthesia Procedure Note ---
Date of Service November 02, 2024 Anesthesia Post Epidural Note Vital Signs Vital Signs: Temp Pulse Resp BP Pulse Ox 36.7 C 70 16 129/76 96 11/02/24 01:33 11/02/24 03:03 11/02/24 01:33 11/02/24 03:03 11/02/24 03:02 Notes Mental Status: alert / awake / arousable and participated in evaluation Patient Amnestic to Procedure: No Nausea / Vomiting: adequately controlled Pain: adequately controlled Airway Patency, RR, SpO2: stable & adequate BP & HR: stable & adequate Hydration State: stable & adequate Neuraxial Anesthesia: was administered and sensory block is resolving Anesthetic Complications: no major complications apparent and Pt Satisfied with anesthetic care Epidural: Removed without complications and With tip intact
[2024-11-02] MEDS ORDERED: BENZOCAINE 20% SPRY 85 APPLN/85 GM CAN EXT PRN (03:20)
[2024-11-02] MEDS ORDERED: SENNA 8.6 MG TAB PO PRN (03:20)
[2024-11-02] MEDS ORDERED: DIPHTHER/TETAN/PERTUS Vaccine (Tdap, Adol/Adult) 0.5mL IM ONE (03:20)
[2024-11-02] MEDS ORDERED: HYDROCORTISONE ACETATE 25 MG SUPP PR PRN (03:20)
[2024-11-02] MEDS ORDERED: CALCIUM CARBONATE 500 MG CHEWABLE TAB PO PRN (03:20)
[2024-11-02] MEDS ORDERED: MAGNESIUM HYDROXIDE SUSP 30 ML UDC PO PRN (03:20)
[2024-11-02] MEDS ORDERED: SODIUM CHLORIDE 0.9% 1,000 ML IV SCH (03:20)
[2024-11-02] MEDS ORDERED: Nursing to Pharmacy Communication SCH (04:30)
[2024-11-02] MEDS: ACETAMINOPHEN 325 MG TAB PO STA (04:41)
[2024-11-02] MEDS: KETOROLAC 30 MG/ML VIAL IV SCH (04:42)
[2024-11-02] MEDS ORDERED: AZITHROMYCIN 500 MG in SODIUM CHLORIDE 0.9% 250 ML IV SCH (06:00)
[2024-11-02] MEDS ORDERED: ceFAZolin 2000MG 2,000 MG/15 ML SYR IV SCH (06:00)
[2024-11-02] MEDS: PRENATAL VITAMIN 1 TAB PO SCH (07:44)
[2024-11-02] MEDS: FERROUS SULFATE 325 MG TAB PO SCH (07:45)
[2024-11-02] MEDS: DOCUSATE SODIUM 100 MG CAP PO SCH (07:46)
[2024-11-02] MEDS: SIMETHICONE 80 MG CHEW PO SCH (07:46)
[2024-11-02] MEDS ORDERED: NON-FORMULARY MEDICATION (Magnesium Glycinate 100 mg magnesium capsule) PO SCH (09:00)
[2024-11-02] MEDS: ACETAMINOPHEN 325 MG TAB PO SCH (10:30)
[2024-11-02] MEDS: ONDANSETRON INJ 2 MG/ML 2 ML VIAL IV PRN (14:41)
[2024-11-02] MEDS ORDERED: ZOLPIDEM TARTRATE 5 MG TAB PO PRN (20:25)
[2024-11-02] MEDS ORDERED: PROMETHAZINE 12.5 MG/50.5 ML BAG IV PRN (20:25)
[2024-11-02] MEDS ORDERED: diphenhydrAMINE Capsule 25 MG CAP PO PRN (20:25)
[2024-11-03] MEDS ORDERED: KETOROLAC 30 MG/ML VIAL IV PRN (03:30)
[2024-11-03] MEDS: IBUPROFEN 600 MG TAB PO SCH (04:54)
--- NOTE | 2024-11-03 06:47 | Obstetrical Progress Note ---
Date of Service <Tisha Posadas MD - Last Filed: 11/03/24 08:11> November 03, 2024 Assessment & Plan <Tisha Posadas MD - Last Filed: 11/03/24 08:11> (1) care and examination: POD#1 s/p pLTCS at 38 weeks d/t breech presentation Stable. Rh+, gbs neg, rubella eq, vitals wnl, AM hgb pending Continue routine care, OOB and ambulation, progress diet as tolerated Plan for DC: 11/04 or <Shaniqua Guillory MD, FACOG - Last Filed: 11/03/24 08:29> (1) care and examination: Subjective <Tisha Posadas MD - Last Filed: 11/03/24 08:11> Eloise is a 24 y/o female who is POD#1 following delivery at 38 weeks d/t breech presentation. 3/10 abd pain/cramping, well managed on analgesics Is voiding, tolerating meals, ambulating normally +passing gas + minimal lochia Planning for breast- and bottle-feeding. Constitutional: no fever, no chills or no sweats Respiratory: no dyspnea Cardiovascular: no chest pain, no palpitations or no calf pain Breast: no breast pain Gastrointestinal: no nausea or no vomiting Genitourinary (female): no dysuria Neurologic: no headache(s) no changes in vision, no headaches Physical Exam <Tisha Posadas MD - Last Filed: 11/03/24 08:11> General: Alert, oriented. No acute distress. Cardiac: Regular rate and rhythm, no murmurs, rubs, or gallops. Respiratory: Clear to auscultation bilaterally. No increased work of breathing. Symmetrical chest rise. No respiratory distress. Abdomen: Soft, nontender, nondistended. Bowel sounds present. Uterus: Uterine fundus firm, nontender, surgical scar clean and healing well. Lower extremities: No lower extremity edema or swelling. No deep calf pain. Results & Data <Tisha Posadas MD - Last Filed: 11/03/24 08:11> Vital Signs (Past 12 Hours) Vital Signs Temp Pulse Resp BP Pulse Ox O2 Del Method 11/02/24 23:55 36.5 C 68 18 114/70 96 Room Air 11/02/24 20:09 36.4 C L 59 L 16 114/69 96 Room Air Supervising Physician <Shaniqua Guillory MD, FACOG - Last Filed: 11/03/24 08:29> Co-Signing Physician Notes Resident Physician Supervision Note: I was present with Dr. Posadas during the history and exam. I discussed the case with the resident and agree with the findings and plan as documented in the note. Any exceptions or clarifications are listed here: [None] Documented By: Shaniqua Guillory MD, FACOG Resident Activity Tracking <Tisha Posadas MD - Last Filed: 11/03/24 08:11> Resident Involvement: Resident Care Provided Care Provided: Adult Hospital Medicine
[2024-11-03 08:16] LABS: Basophils # (auto) 0.02 K/uL (0.00-0.20); Basophils % (auto) 0.2 %; Eosinophils # (auto) 0.07 K/uL (0.00-0.50); Eosinophils % (auto) 0.6 %; Hematocrit (blood only) 29.6 % (37.0-47.0); Hemoglobin 9.9 g/dl (12.0-16.0); Immature Granulocytes # (auto) 0.09 K/uL (0.01-0.20); Immature Granulocytes % (auto) 0.8 %; Lymphocytes # (auto) 2.89 K/uL (1.20-3.40); Lymphocytes % (auto) 25.8 %; Mean Corpuscular Hemoglobin 28.7 pg (25.0-34.0); Mean Corpuscular Hgb Conc 33.4 g/dL (32.0-36.0); Mean Corpuscular Volume 85.8 fL (80.0-100.0); Mean Platelet Volume 11.3 fL (9.4-12.4); Monocytes # (auto) 0.81 K/uL (0.11-0.59); Monocytes % (auto) 7.2 %; Neutrophils # (auto) 7.31 K/uL (1.40-6.50); Neutrophils % (auto) 65.4 %; Platelet Count 160 K/uL (130-400); RDW Coefficient of Variation 14.8 % (11.5-14.5); RDW Standard Deviation 45.8 fL (36.4-46.3); Red Blood Count 3.45 M/uL (4.20-5.40); White Blood Count 11.19 K/ul (4.8-10.8)
[2024-11-03] MEDS: bisacodyL 5 MG TABEC PO SCH (21:28)
[2024-11-04 00:33] VITALS: O2SAT 97
[2024-11-04] MEDS: ACETAMINOPHEN 325 MG TAB PO PRN (06:02)
[2024-11-04] MEDS: IBUPROFEN 600 MG TAB PO PRN (06:02)
--- NOTE | 2024-11-04 06:15 | Obstetrical Progress Note ---
Date of Service <Tisha Posadas MD - Last Filed: 11/04/24 07:01> November 04, 2024 Assessment & Plan <Tisha Posadas MD - Last Filed: 11/04/24 07:01> (1) care and examination: POD#2 s/p pLTCS at 38 weeks d/t breech presentation Stable. Rh+, gbs neg, rubella eq, vitals & H/H wnl Continue routine care, OOB and ambulation, progress diet as tolerated Plan for DC later today <Pauline Celestin MD - Last Filed: 11/04/24 07:31> (1) care and examination: Subjective <Tisha Posadas MD - Last Filed: 11/04/24 07:01> Eloise is a 24 y/o female who is POD#2 following delivery at 38 weeks d/t breech presentation. Reports abd pain/cramping is much improved, well managed on analgesics Is voiding, tolerating meals, ambulating normally +passing gas, BM Having minimal lochia, more w increased movement Incision feels okay Planning for breast- and bottle-feeding. Discussed what to expect after vs previous vaginal delivery Constitutional: no fever, no chills or no sweats Respiratory: no dyspnea Cardiovascular: no chest pain, no palpitations or no calf pain Breast: no breast pain Gastrointestinal: no nausea or no vomiting Genitourinary (female): no dysuria Neurologic: no headache(s) Physical Exam <Tisha Posadas MD - Last Filed: 11/04/24 07:01> General: Alert, oriented. No acute distress. Cardiac: Regular rate and rhythm, no murmurs, rubs, or gallops. Respiratory: Clear to auscultation bilaterally. No increased work of breathing. Symmetrical chest rise. No respiratory distress. Abdomen: Soft, nontender, nondistended. Bowel sounds present. Uterus: Uterine fundus firm, nontender, surgical scar clean, healing well, edges w steri strips Lower extremities: No lower extremity edema or swelling. No deep calf pain. Results & Data <Tsiha Posadas MD - Last Filed: 11/04/24 07:01> Vital Signs (Past 12 Hours) Vital Signs Temp Pulse Pulse Resp BP Pulse Ox O2 Del Method 11/04/24 00:10 36.5 C 72 18 122/74 97 Room Air 11/03/24 19:32 36.8 C 77 18 118/65 98 Room Air 11/03/24 19:32 36.8 C 77 18 118/65 98 Room Air Laboratory Results 11/04/24 05:52 Supervising Physician <Pauline Celestin MD - Last Filed: 11/04/24 07:31> Co-Signing Physician Notes Resident Physician Supervision Note: I interviewed and examined the patient. Discussed with Dr. Posadas and agree with findings and plan as documented in the note. Any exceptions or clarifications are listed here: POD2 s/p pCS, doing well. Stable for dc today Documented By: Pauline Celestin MD Resident Activity Tracking <Tisha Posadas MD - Last Filed: 11/04/24 07:01> Resident Involvement: Resident Care Provided Care Provided: Adult Hospital Medicine
[2024-11-04 06:33] LABS: Hematocrit (blood only) 30.5 % (37.0-47.0); Hemoglobin 10.3 g/dl (12.0-16.0)
[2024-11-04] MEDS ORDERED: MEASLES, MUMPS & RUBELLA VIRUS VACCINE (MMR) 0.5ML VIAL ONE (08:41)
[2024-11-04] MEDS: MEASLES, MUMPS & RUBELLA VIRUS VACCINE (MMR) 0.5ML VIAL SQ ONE (08:51)
[2024-11-04 11:31] VITALS: BP 127/77; RESP 16; TEMP 98.1
[2024-11-04 12:26] VITALS: PULSE 77
== END 2024-11-04 14:22 | disposition home or self-care (01) | DRG 788 ==
LOC: OPB 20:20 → 4S1 20:22 → 4E2 11-02 05:48